=== PATIENT | male | born 1980 | race Caucasian/White ===

== ENCOUNTER 2024-06-20 23:29 | Emergency (ER) | payer OTHER ==
[~2024-06-20] VITALS: Ht 177.8 cm; Wt 100.0 kg
[2024-06-20] MEDS ORDERED: LIDOCAINE/RACEPINEP/TETRACAINE 3 ML SYR TOP ONE (23:45)
[2024-06-20] MEDS ORDERED: DIPHTH,PERTUSS(ACELL),TET VAC 0.5 ML SYRINGE IM ONE (23:45)
[2024-06-21 00:20] VITALS: BP 104/91
== END 2024-06-21 00:20 | disposition home or self-care (01) ==
LOC: ED 23:29
DX: S61.211A Laceration without foreign body of left index finger without damage to nail, initial encounter (principal); W26.0XXA Contact with knife, initial encounter; Y93.G1 Activity, food preparation and clean up
CPT/HCPCS: 90471; 90715; 99282-25